=== PATIENT | male | born 1950 | race Caucasian/White ===

== ENCOUNTER 2017-08-18 08:49 | Emergency (ER) | payer SELFPAY ==
[~2017-08-18] VITALS: Ht 180.3 cm; Wt 89.9 kg
[2017-08-18 08:50] VITALS: BP 136/79
== END 2017-08-18 09:14 | disposition left against medical advice (07) ==
LOC: ED 09:10
DX: R10.9 Unspecified abdominal pain (principal); Z53.21 Procedure and treatment not carried out due to patient leaving prior to being seen by health care provider